=== PATIENT | female | born 1960 | race Caucasian/White ===

== ENCOUNTER 2020-04-19 15:02 | Emergency (ER) | payer OTHER ==
--- OUTSIDE RECORDS SUMMARY | 2020-04-19 15:13 | XMS ---
:1960 Author Organization [facility] Support Name Relationship Address Phone UNK Unavailable Unavailable Unavailable YANELI VIRAMONTES SELF / SAME PATIENT [address] [facility] [phone] [place] [address] Re-disclosure Warning The records that you are about to access may contain information from federally- assisted alcohol or drug abuse programs. If such information is present, then the following federally mandated warning applies: This information has been disclosed to you from records protected by federal confidentiality rules (42 CFR part 2). The federal rules prohibit you from making any further disclosure of this information unless further disclosure is expressly permitted by the written consent of the person to whom it pertains or as otherwise permitted by 42 CFR part 2. A general authorization for the release of medical or other information is NOT sufficient for this purpose. The Federal rules restrict any use of the information to criminally investigate or prosecute any alcohol or drug abuse patient.The records that you are about to access may contain highly sensitive health information, the redisclosure of which is protected by Article 27-F of the [facility] Public Health law. If you continue you may haveaccess to information: Regarding HIV / AIDS; Provided by facilities licensed or operated by the [facility] Office of Mental Health; or Provided by the [facility] Office for People With Developmental Disabilities. If such information is present, then the following [facility] mandated warning applies: This information has been disclosed to you from confidential records which are protected by state law. State law prohibits you from making any further disclosure of this information without the specific written consent of the person to whom it pertains, or as otherwise permitted by law. Any unauthorized further disclosure in violation of state law may result in a fine or fpc sentence or both. A general authorization for the release of medical or other information is NOT sufficient authorization for further disclosure. Insurance Providers Payer name Policy type Policy ID Covered Covered libertarian's Policy P gonzalez / Coverage libertarian ID relationship to [employer] type johnson SELF PAY SP INSURANCE
[2020-04-19 15:19] VITALS: TEMP 99.2; BMI 34.3
--- NOTE | 2020-04-19 15:25 | PDOC ---
History of Present Illness - General Chief Complaint: Pain, Acute Stated Complaint: left arm pain History Source: Patient Exam Limitations: No Limitations - History of Present Illness Initial Comments: 04/19/20 16:29 59 yo F with a hx of GERD presents to the emergency department with left shoulder acute on chronic pain that has been ongoing since 12/2019. Per the patient, the pain onset was in December of this year after hyper flexing her left shoulder and using a circular motion to clean a microwave. She has bouts of increased pain with manipulation of the left arm and worsening when she uses resistance bands on the left arm. No worsening of pain when using the right arm. Denies DAVE, chest pain, SOB, nausea, vomiting, neck pain, lightheadedness, abdominal pain, dysuria, hematuria, diarrhea, hx of PE/DVT, leg pain/swelling, and back pain. Per the patient, the pain is worse when she abducts her arm and externally rotates it. Past History - Medical History Allergies/Adverse Reactions: Allergies Allergy/AdvReac Type Severity Reaction Status Date / Time No Known Allergies Allergy Verified 04/19/20 15:35 Home Medications: Ambulatory Orders Escitalopram Oxalate [Lexapro -] 20 mg PO BID 04/19/20 Naproxen 500 mg PO BID PRN #6 tablet 04/19/20 Oxybutynin Chloride 5 mg PO DAILY 04/19/20 Pantoprazole Sodium [Protonix -] 40 mg PO DAILY 04/19/20 COPD: No GI Disorders: Yes Disorders: Yes Other medical history: anxiety - Immunization History Immunization Up to Date: Yes - Psycho-Social/Smoking History Smoking History: Never smoked Have you smoked in the past 12 months: No Information on smoking cessation initiated: No - Substance Abuse Hx (Audit-C & DAST Scrn) How often the patient has a drink containing alcohol: Monthly or less Number of drinks the patient has on a typical day: 1 or 2 How often the patient has six or more drinks on one occasion: Never Score: In Men: 4 or > Positive; In Women: 3 or > Positive: 1 Screen Result (Pos requires Nsg. Audit-10AR): Negative In the last yr the pt used illegal drug/Rx for NonMed reason: No Score: Yes response is considered Positive: 0 Screen Result (Positive result requires Nsg. DAST-10): Negative Review of Systems - Review of Systems Able to Perform ROS?: Yes Is the patient limited Bulgarian proficient: No Constitutional: No: Chills, Diaphoresis, Fever HEENTM: No: Eye Pain, Ear Pain, Nose Pain, Throat Pain Respiratory: No: Cough, Shortness of Breath Cardiac (ROS): No: Chest Pain, Lightheadedness, Palpitations ABD/GI: No: Diarrhea, Nausea, Vomiting : No: Dysuria, Hematuria Musculoskeletal: Yes: Muscle Pain (left shoulder pain). No: Back Pain, Neck Pain Integumentary: No: Rash Neurological: No: Headache Psychiatric: No: Change in Appetite Hematologic/Lymphatic: No: Anemia *Physical Exam - Vital Signs Last Vital Signs Temp Pulse Resp BP Pulse Ox 99.2 F 102 H 18 136/82 95 04/19/20 15:04 04/19/20 15:04 04/19/20 15:04 04/19/20 15:04 04/19/20 15:04 - Physical Exam General Appearance: Yes: Nourished, Appropriately Dressed. No: Apparent Distress, Intoxicated HEENT: positive: EOMI, AURE, Normal Voice, Symmetrical, Hearing Grossly Normal. negative: Pale Conjunctivae, Scleral Icterus (R), Scleral Icterus (L), Muffled/Hoarse voice, Excessive drooling Neck: positive: Trachea midline Respiratory/Chest: positive: Lungs Clear, Normal Breath Sounds. negative: Chest Tender, Respiratory Distress, Accessory Muscle Use Cardiovascular: positive: Regular Rhythm, Regular Rate, S1, S2. negative: Systolic Murmur Comments:: 04/19/20 17:06 radial pulse adequate and strong bilaterally Lymphatic: negative: Adenopathy Musculoskeletal: positive: Normal Inspection. negative: CVA Tenderness, Vertebral Tenderness Extremity: positive: Normal Capillary Refill, Normal Inspection, Normal Range of Motion, Tender (tender to palpation in the left infraspinatus distribution of the left shoulder. Positive empty can test. ). negative: Swelling Integumentary: positive: Normal Color, Dry, Warm Neurologic: positive: Alert, Normal Mood/Affect Medical Decision Making - Medical Decision Making 04/19/20 17:06 59 yo F presenting with left shoulder pain ddx: patient likely has rotator cuff impingement vs tear. less likely to be shoulder dislocation and fracture due to lack of trauma. Patient able to ROM fully her arm but with pain. unlikely to be acs given the patients clinical symptoms and medical history will obtain xray to confirm proper alignment. will treat pain patient re-assessed. patient has improvement in pain. return precautions given. Initial Vital Signs Temp Pulse Resp BP Pulse Ox 99.2 F 102 H 18 136/82 95 04/19/20 15:04 04/19/20 15:04 04/19/20 15:04 04/19/20 15:04 04/19/20 15:04 patient to follow up with PMD this friday for physical therapy referral. Discharge - Discharge Information Problems reviewed: Yes Clinical Impression/Diagnosis: Rotator cuff (capsule) sprain Qualifiers: Encounter type: initial encounter Laterality: left Qualified Code(s): S43.422A - Sprain of left rotator cuff capsule, initial encounter Condition: Stable - Admission No - Additional Discharge Information Prescriptions: Naproxen 500 mg PO BID PRN #6 tablet PRN Reason: Pain - Follow up/Referral Referrals: Ramirez Adler DO [Staff Physician] - - Patient Discharge Instructions Patient Printed Discharge Instructions: Shoulder Tendinopathy, DI for Rotator Cuff Injury Additional Instructions: You were seen in the emergency department for your shoulder pain. You likely have a rotator cuff injury. Please take the naproxen 500 mg every 12 hours as needed for pain. Please follow up with either your primary care physician within 1 week after discharge for follow up care and referral to physical therapy or with the orthopedic surgeon referred to you. Please return to the emergency department if you have worsening or new concerning symptoms. Thank you - Post Discharge Activity
[2020-04-19] MEDS ORDERED: LIDOCAINE 5% TOPICAL PATCH TP ONE (15:28)
[2020-04-19] MEDS ORDERED: ACETAMINOPHEN 325 MG TABLET (FP) PO ONE (15:28)
[2020-04-19] MEDS ORDERED: KETOROLAC TROMETHAMINE 30 MG/1 ML VIAL IM ONE (15:28)
[2020-04-19] MEDS ORDERED: LIDOCAINE 5% TOPICAL PATCH ONE (15:37)
[2020-04-19] MEDS ORDERED: ACETAMINOPHEN 325 MG TABLET (FP) ONE (15:37)
[2020-04-19] MEDS ORDERED: KETOROLAC TROMETHAMINE 30 MG/1 ML VIAL ONE (16:11)
[2020-04-19 16:45] VITALS: BP 116/66; PULSE 84
--- NOTE | 2020-04-19 17:00 | PDOC ---
Attending Attestation - Resident Resident Name: KendraTavon - ED Attending Attestation I have performed the following: I have examined & evaluated the patient, The case was reviewed & discussed with the resident, I agree w/resident's findings & plan, Exceptions are as noted - HPI HPI: 04/19/20 16:55 Injured left shoulder several months ago pain has persisted, intermittently, now appears to be worsening. Pain is located diffusely over the rotator cuff. Pain is worse with flexion and abduction, with onset at about 90 degrees of each. There is no distal numbness tingling pain or weakness. There are no other associated symptoms. - Physicial Exam PE: 04/19/20 16:56 Physical exam: Mildly elevated blood pressure, possibly due to pain. Otherwise vital signs within normal limits. Blood pressure improved after pain control. Remainder physical exam is normal except for the left shoulder, which shows limited active range of motion due to pain at approximately 90 degrees, flexion and abduction. There is no deformity, swelling, erythema, heat, or palpable effusion. There is diffuse tenderness over the rotator cuff, most notably in the [place] area. Distal pulses are full. No distal sensory or motor deficits. X-ray of the shoulder is negative. There is no evidence of fracture or dislocation, and no calcium deposits in the tendons. - Medical Decision Making 04/19/20 16:58 Assessment: Chronic rotator cuff tendinitis, with risk of frozen shoulder if not adequately treated Plan: Limited course of NSAIDs, until range of motion exercises and stretching t o keep the shoulder mobile, orthopedic referral for further evaluation and possibly physical therapy. Referred to PMD for monitoring of blood pressure. Discharge - Discharge Information Problems reviewed: Yes Clinical Impression/Diagnosis: Rotator cuff (capsule) sprain Qualifiers: Encounter type: initial encounter Laterality: left Qualified Code(s): S43.422A - Sprain of left rotator cuff capsule, initial encounter Condition: Stable - Additional Discharge Information Prescriptions: Naproxen 500 mg PO BID PRN #6 tablet PRN Reason: Pain - Follow up/Referral Referrals: Ramirez Adler DO [Staff Physician] - - Patient Discharge Instructions Patient Printed Discharge Instructions: Shoulder Tendinopathy, DI for Rotator Cuff Injury Additional Instructions: You were seen in the emergency department for your shoulder pain. You likely have a rotator cuff injury. Please take the naproxen 500 mg every 12 hours as needed for pain. Please follow up with either your primary care physician within 1 week after discharge for follow up care and referral to physical therapy or with the orthopedic surgeon referred to you. Please return to the emergency department if you have worsening or new concerning symptoms. Thank you - Post Discharge Activity
[2020-04-19] MEDS ORDERED: LIDOCAINE PATCH REMOVAL MC SCH (22:00)
== END 2020-04-19 16:57 | disposition home or self-care (01) ==
LOC: FER 15:02
PROC: 3E0233Z Introduction of Anti-inflammatory into Muscle, Percutaneous Approach (ICD-10-PCS; principal; 2020-04-19)
DX: S43.422A Sprain of left rotator cuff capsule, initial encounter (principal)
CPT/HCPCS: 73030-TC-LT-FY; 99284-25

== ENCOUNTER 2023-02-25 19:40 | Emergency (ER) | payer SELFPAY ==
[2023-02-25 19:54] VITALS: BP 156/97; PULSE 71; RESP 18; TEMP 97.9; BMI 34.3
[2023-02-25] MEDS ORDERED: KETOROLAC TROMETHAMINE 30 MG/1 ML VIAL IVPUSH ONE (20:11)
[2023-02-25] MEDS ORDERED: SODIUM CHLORIDE 1,000 ML IV ONE (20:11)
[2023-02-25] MEDS ORDERED: KETOROLAC TROMETHAMINE 30 MG/1 ML VIAL ONE (20:39)
[2023-02-25 21:10] LABS: ALBUMIN 4.4 g/dl (3.4-5.0); BLOOD UREA NITROGEN 19.3 mg/dl (7-18); CALCIUM 9.9 mg/dl (8.5-10.1); CREATININE 1.1 mg/dl (0.6-1.3); POTASSIUM 4.5 mmol/L (3.5-5.1); SGOT/AST 21.9 U/L (15-37); SGPT/ALT 34.4 U/L (7-52); TOT PROT 6.7 g/dl (6.4-8.2)
[2023-02-25 21:14] LABS: HEMATOCRIT 40.4 % (32.4-45.2); HEMOGLOBIN 13.5 G/dL (10.7-15.3); MCH 31.2 pg (25.7-33.7); MCHC 33.3 g/dl (32.0-36.0); MEAN CELL VOLUME 93.8 fl (80-96); MEAN PLT VOLUME 6.8 fl (7.5-11.1); PLATELET COUNT 268.1 10^3/uL (134-434); RBC 4.31 10^6/uL (3.60-5.2); RDW 13.9 % (11.6-15.6)
[2023-02-25 23:44] LABS: BILIRUBIN,TOTAL 0.4 mg/dL (0.2-1)
== END 2023-02-25 22:13 | disposition home or self-care (01) ==
LOC: FER 19:40
PROC: 3E0333Z Introduction of Anti-inflammatory into Peripheral Vein, Percutaneous Approach (ICD-10-PCS; principal; 2023-02-25)
PROC: 3E0337Z Introduction of Electrolytic and Water Balance Substance into Peripheral Vein, Percutaneous Approach (ICD-10-PCS; 2023-02-25)
DX: M54.9 Dorsalgia, unspecified (principal); R10.32 Left lower quadrant pain; R30.0 Dysuria; R35.0 Frequency of micturition
CPT/HCPCS: 36415; 74176-TC; 80053; 81003; 85027; 87086; 99284-25

== ENCOUNTER 2023-05-05 12:00 | Emergency (ER) | payer OTHER ==
[2023-05-05 12:13] VITALS: BP 136/75; PULSE 74; RESP 18; TEMP 97.8; BMI 34.3
== END 2023-05-05 13:45 | disposition home or self-care (01) ==
LOC: FER 12:00
DX: M25.561 Pain in right knee (principal); S83.91XA Sprain of unspecified site of right knee, initial encounter; X50.1XXA Overexertion from prolonged static or awkward postures, initial encounter
CPT/HCPCS: 73562-TC-RT-FY; 99283-25